=== PATIENT | male | born 1995 | race African-American/Black ===

== ENCOUNTER 2025-04-27 13:17 | Emergency (ER) | payer MEDICARE ==
[~2025-04-27] VITALS: Ht 177.8 cm; Wt 79.0 kg
[2025-04-27 13:26] VITALS: O2SAT 99
[2025-04-27 14:08] VITALS: TEMP 36.6; O2SAT 99
[2025-04-27 14:39] VITALS: BP 125/82; PULSE 87; RESP 16
[2025-04-27] MEDS: IBUPROFEN 600MG TABLET PO ONE (14:39)
[2025-04-27] MEDS ORDERED: IBUP-2028 MT (15:41)
== END 2025-04-27 16:45 | disposition home or self-care (01) ==
LOC: ER 13:17
DX: M25.561 Pain in right knee (principal); I10 Essential (primary) hypertension; Z86.59 Personal history of other mental and behavioral disorders
CPT/HCPCS: 99283; 73562; L1830